=== PATIENT | male | born 1970 ===

== ENCOUNTER → 2024-03-04 00:50 | Outpatient (REF) | payer SELFPAY ==
--- NOTE | 2024-03-04 07:30 | DI.US_ITS ---
APPROVED REPORT EXAM: Comprehensive 2D, Doppler, and color-flow Echocardiogram Patient Location: Out-Patient Sample Preparation Supervisor: Mik Esqueda RDCS (AE) Indications: Peripheral edema Other Information Technically limited study due to body habitus. Conclusion Normal ventricular wall thickness and chamber size. Ejection fraction 60 to 65%. Wall motion is nor mal Right ventricle is dilated Left atrial size is normal. The right atrium is moderately dilated There are no structural valvular abnormalities Mild tricuspid regurgitation, estimated right ventricular systolic pressure is 47 mmHg Wall motion Left Ventricle The left ventricle is normal size. The left ventricular systolic function is normal. The left ventric ular ejection fraction is within the normal range. There is normal left ventricular wall thickness. T here is normal LV segmental wall motion. There is no ventricular septal defect visualized. LVEF is 60 -65%. Right Ventricle Right ventricle is mildly dilated. Right ventricular systolic function could not be assessed. Atria The left atrium size is normal. Right atrium is moderately dilated. The interatrial septum is intact with no evidence for an atrial septal defect. Aortic Valve The aortic valve is normal in structure. Aortic valve is trileaflet. There is no aortic valvular sten osis. Mitral Valve The mitral valve is normal in structure. No evidence of mitral valve stenosis. Trace mitral regurgita tion. Tricuspid Valve The tricuspid valve is normal in structure. There is no tricuspid valve stenosis. Mild tricuspid regu rgitation. The RVSP is 47.3 mmHg. Pulmonic Valve The pulmonary valve is normal in structure. There is no pulmonic valvular stenosis. There is no pulmo anthony valvular regurgitation. Great Vessels The aortic root is normal in size. The ascending aorta is normal in size. The IVC collapses <50% with inspiration. Pericardium There is no pericardial effusion. 2D Dimensions IVSD d PLAX 0.73 cm M: 0.6-1.2 Ao Root d 2.99 cm M: 3.1 - 3.7 LVPW d PLAX 0.70 cm M: 0.6 - 1.2 Ao Asc Diam d 2.88 cm M: 2.6 - 3.4 LVID d PLAX 4.85 cm M: 4.2 - 5.8 LVDs 3.33 cm M: 2.5 - 4.0 LV EF Teichholz 59.2 % FS 31.48 % LV EDV (Teich) 110.3 mL LV ESV (Teich) 45.0 mL Stroke Vol Index (Teich) 29.84 M-Mode TAPSE 4.44 cm (M/F) >1.7 Auto EF LV EDV A4C 139.9 mL LV EDV A2C 175.3 mL LV EDV BP 156.5 mL LV ESV A4C 52.4 mL LV ESV A2C 72.4 mL LV ESV BP 60.9 mL LVEF(%) A4C 62.6 % LVEF(%) A2C 58.7 % LVEF(%) BP 61.1 % LV SV A4C 87.5 ml LV SV A2C 102.8 ml LV SV BP 95.5 ml LV CO A4C 8.4 L/min LV CO A2C 10.1 L/min LV CO BP 9.2 L/min HR A4C 96.26 BPM HR A2C 97.83 BPM LV EDV Index (BP) LA Volume LA Length A4C 5.6 cm LA Length A2C 5.8 cm LA Area A4C s 16.49 cm2 LA Area A2C s 23.31 cm2 LA Vol A4C A-L 40.94 mL LA Vol A2C A-L 79.28 mL LA Vol Biplane A-L 57.9 mL LA Vol/BSA A4C A-L LA Vol/BSA A2C A-L LA Vol/BSA BP A-L 26.4 mL/m2 LA Vol A4C MOD 36.3 mL LA Vol A2C MOD 74.6 mL LA Vol BP MOD 52.2 mL RA Volume RA Area A4C 25.6 cm2 RA ESV A4C (A-L) 100.4mL RA Vol/BSA A4C A-L RA Length A4C 5.5 cm RA ESV A4C (MOD) 93.6mL LV Diastology MV E' medial 0.169 (>0.07 m/s) MV E Vmax 1.37 (0.4-1.3 m/s) MV E' lateral 0.169 (>0.1 m/s) Aortic Valve AoV Vmax 2.09 m/s LVOT Vmax 1.59 m/s AoV Peak Grad 17.5 mmHg LVOT Peak Grad 10.1 mmHg AoV Area (Vmax) 2.70 cm2 LVOT VTI 0.294 m AoV VTI 0.409 m LVOT Mean Grad 5.4 mmHg AoV Mean Talib. 1.49 m/s LVOT SV 104.86 mL AoV Mean Grad 10.1 mmHg LVOT Diam s 2.10 cm AoV Area (VTI) 2.56 cm2 AV Regurg Peak Gr. 17.49 mmHg Velocity Ratio 0.76 Mitral Valve MV Vmax TIPS 1.45 m/s MV Mean Grad 4.1 (<2mmHg) MV VTI 0.364 m Pulmonary Valve PV Vmax 1.64 (0.5-1.5 m/s) RVOT Vmax 1.14 m/s PV Peak Grad 10.7 mmHg RVOT Peak Gr. 5.2 mmHg PV Mean Talib 1.16 m/s RVOT VTI 0.218 m PV Mean Grad 6.1 mmHg RVOT Mean Gr. 2.7 mmHg Tricuspid Valve RA Pressure 8.00 mmHg TR Vmax 3.13 m/s TR Peak Grad 39.2 mmHg RVSP (TR) 47.3 mmHg
== END ==
LOC: DI 00:50
PROVIDERS: Visit Provider Nurse Practitioner Family
DX: R60.0 Localized edema (principal)
CPT/HCPCS: 93306